=== PATIENT | female | born 1975 | race Caucasian/White ===

== ENCOUNTER 2024-05-01 06:26 | Observation (INO) | payer OTHER ==
[~2024-05-01] VITALS: Ht 162.6 cm; Wt 99.1 kg
[2024-05-01] MEDS ORDERED: NS 1,000 ML IV ONE ×2 (07:00→07:45)
[2024-05-01 07:13] LABS: BASO # 0.1 K/mm3 (0.0-0.2); BASO % 0.5 % (0.0-2.0); EOS # 0.4 K/mm3 (0.0-0.7); EOS % 2.4 % (0.0-4.0); GRAN # 11.1 K/mm3 (1.4-6.5); GRAN % 74.4 % (42.2-75.2); HEMATOCRIT 42.3 % (37.0-47.0); LYMPH # 2.5 K/mm3 (1.2-3.4); LYMPH % 16.9 % (20.0-51.0); MEAN CELL VOLUME 88 fl (80.0-100.0); MEAN CORPUSCULAR HEMOGLOBIN 29 pg (27-31); MEAN CORPUSCULAR HGB CONC 33 g/dl (33.0-37.0); MEAN PLATELET VOLUME 10.6 fl (7.4-10.4); MONO # 0.8 K/mm3 (0.1-0.6); MONO % 5.3 % (1.7-9.3); PLATELET COUNT 408 K/mm3 (130-400); RED BLOOD COUNT 4.83 M/mm3 (4.10-5.30); REDCELL DISTRIBUTION WIDTH-CV 12.8 % (11.5-14.5)
[2024-05-01 07:29] LABS: ALANINE AMINOTRANSFERASE 22 U/L (0-55); ALBUMIN 3.7 g/dL (3.5-5.0); ALKALINE PHOSPHATASE 83 U/L (40-150); ANION GAP 17 mmol/L (7-16); AST,SGOT 19 U/L (5-34); BILIRUBIN,TOTAL 0.8 mg/dL (0.2-1.2); BLOOD UREA NITROGEN 17 mg/dL (7-19); CALCIUM 9.4 mg/dL (8.4-10.2); CHLORIDE 100 mEq/L (98-107); CREATININE, serum 1.42 mg/dL (0.57-1.11); GLUCOSE 151 mg/dL (70-99); POTASSIUM 3.2 mEq/L (3.5-4.5); SODIUM 137 mEq/L (136-145); TOTAL PROTEIN 6.9 g/dl (6.2-8.1)
[2024-05-01 07:34] LABS: TROPONIN-I < 0.010 ng/mL (0.00-0.033)
[2024-05-01 07:54] LABS: MAGNESIUM 1.9 mg/dL (1.6-2.6)
[2024-05-01 08:15] VITALS: BP 86/57
[2024-05-01 08:42] LABS: PH 6.5 (5.0-8.5); URINE APPEARANCE CLEAR (CLEAR/HAZY); URINE BLOOD NEGATIVE (NEGATIVE); URINE COLOR YELLOW (YELLOW); URINE GLUCOSE NEGATIVE (NEGATIVE); URINE KETONE NEGATIVE (NEGATIVE); URINE NITRATE NEGATIVE (NEGATIVE); URINE PROTEIN(semi-quant) TRACE (NEGATIVE); URINE UROBILINOGEN 0.2 E.U/dL (0.2-1.0)
[2024-05-01] MEDS ORDERED: Docusate Sodium 100 MG CAP PO PRN (10:00)
[2024-05-01] MEDS ORDERED: Polyethylene Glycol 3350 17 GM PDS PO PRN (10:00)
[2024-05-01] MEDS ORDERED: Ondansetron 4 MG/2 ML VIAL IV PRN (10:00)
[2024-05-01] MEDS ORDERED: NS 1,000 ML IV SCH (10:00)
[2024-05-01] MEDS ORDERED: Acetaminophen 325 MG TAB PO PRN (10:00)
[2024-05-01] MEDS ORDERED: Doxycycline Monohydrate 100 MG CAP PO SCH (10:05)
[2024-05-01 10:46] LABS: COLLECTION METHOD CLEAN CATCH
[2024-05-01] MEDS ORDERED: ZESTRIL 20MG TA20 MG PO (10:59)
[2024-05-01] MEDS ORDERED: LIPITOR 40MG TA40 MG PO (10:59)
[2024-05-01] MEDS ORDERED: MOUNJARO5 MG/0.5 M SQ (11:00)
[2024-05-01 11:19] VITALS: BP 103/49; PULSE 72; TEMP 98
--- NOTE | 2024-05-01 11:45 | NUR ---
Patient up to medical unit from ED. Patient awake, alert and oriented. States she is dizzy, had low BP readings this AM. Denies shortness of breath or nausea. Has area of redness on inner thigh that was lanced in ED. Denies any other symptoms or source of infection. Bed in lowest position with call light within reach.
[2024-05-01] MEDS ORDERED: Insulin Lispro (HumaLOG) SQ SCH (12:00)
[2024-05-01 12:53] VITALS: BP_SYST 103
[2024-05-01 13:04] VITALS: BP 108/69; PULSE 80
--- NOTE | 2024-05-01 13:59 | NUR ---
FIDELINA met with patient and her daughter Adrien ([phone]) to complete initial assessment for discharge planning. 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 Patient sees Jimmie JACINTO as her PCP and uses [facility] without difficulty. Patient denies any DME and is independent with activities. Patient provided insurance information as [facility]. Plan is to return home. Discharge planning: Home
[2024-05-01] MEDS ORDERED: MONODOX100 PO (14:43)
--- NOTE | 2024-05-01 15:51 | NUR ---
Pt educated on discharge instructions and new medications, pt verbalized understanding. All belongings sent home with pt. Assisted out to car by nursing staff, pt's daughter to drive pt home.
[2024-05-01] MEDS ORDERED: Famotidine 20 MG TAB PO SCH (21:00)
== END 2024-05-01 15:52 | disposition home or self-care (01) ==
LOC: COL.ER 06:26 → MEDICAL 10:04
PROVIDERS: Emergency Medicine; ADMIT Internal Medicine
DX: I95.9 Hypotension, unspecified (principal); R42 Dizziness and giddiness; D72.829 Elevated white blood cell count, unspecified; L73.9 Follicular disorder, unspecified; E87.20 Acidosis, unspecified; I10 Essential (primary) hypertension; Z11.52 Encounter for screening for COVID-19; E11.9 Type 2 diabetes mellitus without complications; E66.9 Obesity, unspecified; E78.5 Hyperlipidemia, unspecified; G47.9 Sleep disorder, unspecified; Z79.85 Long-term (current) use of injectable non-insulin antidiabetic drugs; Z79.899 Other long term (current) drug therapy; Z87.891 Personal history of nicotine dependence
CPT/HCPCS: G0378; J1650; J7030